=== PATIENT | female | born 1945 | race Caucasian/White ===

== ENCOUNTER 2023-09-18 11:05 | Outpatient (CLI) | payer MEDICARE, BC, SELFPAY | END 2023-09-18 11:06 | disposition home or self-care (01) | PROVIDERS: PCP Nurse Practitioner Family; Visit Provider Nurse Practitioner Family | DX: I10 Essential (primary) hypertension (principal); Z13.220 Encounter for screening for lipoid disorders | CPT/HCPCS: 80053; 80061; 85025 ==

== ENCOUNTER 2024-01-15 13:46 | Outpatient (CLI) | payer MEDICARE, BC, SELFPAY | END 2024-01-15 13:47 | disposition home or self-care (01) | PROVIDERS: PCP Nurse Practitioner Family; Visit Provider Nurse Practitioner Family | DX: I10 Essential (primary) hypertension (principal); Z13.0 Encounter for screening for diseases of the blood and blood-forming organs and certain disorders involving the immune mechanism; Z91.81 History of falling | CPT/HCPCS: 80053; 84484; 85025 ==

== ENCOUNTER 2024-01-28 09:02 | Outpatient (CLI) | payer MEDICARE, BC, SELFPAY ==
--- NOTE | 2024-01-28 09:15 | CRLHL7_ITS ---
For Patients: As a result of the Century Cures Act, medical imaging exams and procedure reports are released immediately into your electronic medical record. You may view this report before your referring provider. If you have questions, please contact your health care provider. INDICATION Fall. TECHNIQUE: Multiplanar multisequence MR imaging of the brain prior to and following intravenous contrast. COMPARISON: None. FINDINGS: Mild diffuse cerebral volume loss. No mass effect or midline shift. Patchy FLAIR hyperintensities in the supratentorial white matter and kade, typical for moderate chronic microvascular ischemic changes. No intracranial hemorrhage or pathologic extra-axial fluid collection. No diffusion restriction to suggest acute infarction. No pathologic intracranial enhancement. The major arterial flow voids at the skull base are preserved. Thinning of the ocular lenses. Airp-ik-ccnzrasl ethmoid sinus mucosal thickening. Small right mastoid effusion. IMPRESSION: 1. No acute intracranial abnormality. 2. Moderate chronic microvascular ischemic changes and mild diffuse cerebral volume loss. Dictated by Quoc Fox MD @ 01/28/2024 1:43:11 PM (Electronically Signed)
== END 2024-01-28 09:03 | disposition home or self-care (01) ==
PROVIDERS: PCP Nurse Practitioner Family; Visit Provider Nurse Practitioner Family
DX: Z91.81 History of falling (principal); I67.82 Cerebral ischemia; W19.XXXA Unspecified fall, initial encounter
CPT/HCPCS: 70553; A9575

== ENCOUNTER 2024-05-06 14:13 | Outpatient (CLI) | payer MEDICARE, BC, SELFPAY | END 2024-05-06 14:14 | disposition home or self-care (01) | PROVIDERS: PCP Nurse Practitioner Family; Visit Provider Nurse Practitioner Family | DX: R42 Dizziness and giddiness (principal) | CPT/HCPCS: 80053; 84484; 85025 ==

== ENCOUNTER 2024-10-11 09:39 | Outpatient (CLI) | payer MEDICARE, BC, SELFPAY ==
--- OUTSIDE RECORDS SUMMARY | 2024-09-21 15:28 | XMS_ITS | Encounter Summary ---
Author Organization [facility] Address [address] [place] [address] Care Team Providers Care Forensic Document Examiner Name Role Phone Elsewhere, Pcp Primary Care Provider Unavailabl e Reason for Referral * Outpatient (Routine) - Closed Specialty Diagnoses / Procedures Referred By Lorri brown Referred To Contact Diagnoses Screening Mammogram Breast Cancer Procedures BI Breast Screening Bilateral with Tomosynthesis Arnaud Meyer M.D. [address] [place] [phone] Phone: tel: [facility] Region Referral ID Status Reason Start Date Expiration Date Visits Re quested Visits Authorized [id number] Closed 09/01/2024 12/02/2025 1 1 Reason for Visit * Outpatient (Routine) - Closed Specialty Diagnoses / Procedures Referred By Lorri brown Referred To Contact Diagnoses Screening Mammogram Breast Cancer Procedures BI Breast Screening Bilateral with Tomosynthesis Arnaud Meyer M.D. [address] [place] [phone] Phone: tel: fax: [facility] Region Referral ID Status Reason Start Date Expiration Date Visits Re quested Visits Authorized [id number] Closed 09/01/2024 12/02/2025 1 1 Encounter Details Date Type Department Care Team (Latest Contact Info) Description 09/21/2024 3:28 PM CDT - 09/21/2024 11:59 PM CDT Hospital Encounter Department of Radiology in [address] [phone] Arnaud Meyer M.D. [address] [place] [phone] Screening Mammogram Breast Cancer Discharge Disposition: Home or Self Care Social History Tobacco Use Types Packs/Day Years Used Date Smoking Tobacco: Former Cigarettes 0.5 21.8 0 09/12/1964 - 1986 Smokeless Tobacco: Never Alcohol Use Standard Drinks/Week Comments Yes 0 (1 standard drink = 0.6 oz pur e alcohol) social use- less than monthy [facility] Utilities Answer Date Recorded In the past 12 months has e [employer], gas, oil, or water [employer] threatened to shut off services in your home? Patient declined 01/08/2024 Humiliation, Afraid, Rape, and Kick questionnair e Answer Date Recorded Within the last year, have y ou been afraid of your partner or ex-partner? Patient declined 07/07/2022 Emotionally Abused Not on file 07/07/2022 Within the last year, have y ou been kicked, hit, slapped, or otherwise physically hurt by your partner or ex-partner? Patient declined 07/07/2022 Within the last year, have y ou been raped or forced to have any kind of sexual activity by your partner or ex-partner? Patient declined 07/07/2022 Hunger Vital Sign Answer Date Recorded Within the past 12 months, y ou worried that your food would run out before you got the money to buy more. Patient declined Within the past 12 months, t he food you bought just didn't last and you didn't have money to get more. Patient declined PRAPARE - Transportation Answer Date Re corded In the past 12 months, has l ack of transportation kept you from medical appointments or from getting medications? Patient declined 01/08/2024 In the past 12 months, has l ack of transportation kept you from meetings, work, or from getting things needed for daily living? Patient declined 01/08/2024 Housing Stability Answer Date Recorded What is your living situation today? I have a [facility] place to live 01/08/2024 Education Answer Date Recorded What is the highest level of school you have completed or the highest degree you have received? 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 metoprolol tartrate (LOPRESSOR) 50 mg tablet Take 50 mg by mouth 2 (two) times a day. 04/30/2021 sertraline (ZOLOFT) 100 mg tablet Take 100 mg by mouth 2 (two) times a day. 3 09/26/2017 vit C/E/Zn/coppr/lute in/zeaxan (PRESERVISION AREDS 2 ORAL) Take 1 capsule by mouth 2 (two) times a day. documented as of this encounter Plan of Treatment Not on file documented as of this encounter Procedures Procedure Name Priority Date/Time Associated Diagnosis Comments BI BREAST SCREENING BILATERAL WITH TOMOSYNTHESIS RAD - Routine (most inpatients and all outpatients) 09/21/2024 3:42 PM CDT Screening Mammogram Breast Cancer documented in this encounter Results * BI Breast Screening Bilateral with Tomosynthesis (09/21/2024 3:42 PM CDT) Anatomical Region Laterality Modality Breast, Breast Imaging RST L OS, Breast Imaging ARZ LOS, Breast Imaging FLA LOS Bilateral Mammography Impressions 09/21/2024 4:41 PM CDT Negative. RECOMMENDATION: Annual Screening Mammogram ASSESSMENT: BI-RADS: 1: Negative. Narrative 09/21/2024 4:41 PM CDT EXAM: BI BREAST SCREENING BILATERAL WITH TOMOSYNTHESIS Current study was evaluated with a Computer Aided Detection (CAD) system. INDICATION: Screening mammogram. COMPARISON: Prior exam(s) were available and reviewed for comparison. DENSITY: c. The breast(s) are heterogeneously dense, which may obscure small masses. FINDINGS: No mammographic findings of malignancy. Procedure Note Mauro Darden M.D. - 09/21/2024 EXAM: BI BREAST SCREENING BILATERAL WITH TOMOSYNTHESIS Current study was evaluated with a Computer Aided Detection (CAD) system. INDICATION: Screening mammogram. COMPARISON: Prior exam(s) were available and reviewed for comparison. DENSITY: c. The breast(s) are heterogeneously dense, which may obscuresmall masses. FINDINGS: No mammographic findings of malignancy. IMPRESSION: Negative. RECOMMENDATION: Annual Screening Mammogram ASSESSMENT: BI-RADS: 1: Negative. Arnaud Meyer M.D. IMG BI PROCEDURES Final R esult documented in this encounter Visit Diagnoses Diagnosis Screening Mammogram Breast Cancer documented in this encounter Additional Health Concerns Assessment Noted Time PHQ-9 Depression Total Score: 0 02/10/20 12 10:02 AM CDT documented as of this encounter Care Teams Forensic Document Examiner Relationship Specialty Start Date End Date Elsewhere, Pcp PCP - General Family Medicine 04/01/18 documented as of this encounter
--- OUTSIDE RECORDS SUMMARY | 2024-10-01 11:14 | XMS_ITS | Encounter Summary ---
Author Organization [facility] Address [address] [place] [address] Care Team Providers Care Psychic Reader Name Role Phone Elsewhere, Pcp Primary Care Provider Unavailabl e Reason for Referral * Outpatient (Routine) - Closed Specialty Diagnoses / Procedures Referred By Contac t Referred To Contact Diagnoses Osteopenia Procedures BMD Bone Density Spine Hips Yadi Wilson, C.N.P. [address] [place] [phone] Phone: tel: fax: [facility] Region Referral ID Status Reason Start Date Expiration Date Visits Re quested Visits Authorized [id number] Closed 09/30/2024 12/31/2025 1 1 Reason for Visit * Outpatient (Routine) - Closed Specialty Diagnoses / Procedures Referred By Contac t Referred To Contact Diagnoses Osteopenia Procedures BMD Bone Density Spine Hips Yadi Wilson, C.N.P. [address] [place] [address] Phone: tel: fax: [facility] Region Referral ID Status Reason Start Date Expiration Date Visits Re quested Visits Authorized [id number] Closed 09/30/2024 12/31/2025 1 1 Encounter Details Date Type Department Care Team ([facility] st Contact Info) Description 10/01/2024 11:14 AM CDT - 10/01/2024 11:59 PM CDT Hospital Encounter Department of Radiology in [address] [phone] Yadi Wilson C.NPieroP. [address] [place] [address] Osteopenia Discharge Disposition: Home or Self Care Social History Tobacco Use Types Packs/Day Years Used Date Smoking Tobacco: Former Cigarettes 0.5 21.8 0 09/12/1964 - 1986 Smokeless Tobacco: Never Alcohol Use Standard Drinks/Week Comments Yes 0 (1 standard drink = 0.6 oz pur e alcohol) social use- less than monthy [facility] Utilities Answer Date Recorded In the past 12 months has e [employer], gas, oil, or water [employer] threatened to shut off services in your [...] PM CDT Legal Sex Female 3:34 AM DIRECTOR SHIP Gender Identity Female 11/24/2017 4:50 PM CDT [...] Procedure Name Priority Date/Time Associated Diagnosis Comments BMD BONE DENSITY SPINE HIPS RAD - Routine (most inpatients and all outpatients) 10/01/2024 11:30 AM CDT Osteopenia documented in this encounter Results * BMD Bone Density Spine Hips (10/01/2024 11:30 AM CDT) Anatomical Region Laterality Modality Hip, Lumbar Spine, Nuclear M edicine RST LOS, Musculoskeletal ARZ LOS, Muskuloskeletal FLA LOS N/A Radio graphic Imaging Impressions 10/01/2024 11:55 AM CDT Low bone density (Osteopenia) DualFemur (region: Neck Right) Narrative 10/01/2024 11:55 AM CDT EXAM: BMD BONE DENSITY SPINE HIPS Bone Mineral Density (BMD) analysis performed on [employer] with serial number [id number]. COMPARISON: Serial Comparisons Left Total Hip results: Exam Date BMD T-score 01/02/2011 0.914 g/cm2 -0.7 01/02/2011 0.915 g/cm2 -0.7 02/10/2012 0.885 g/cm2 -1.0 02/10/2012 0.877 g/cm2 -1.0 08/20/2022 0.781 g/cm2 -1.8 10/01/2024 0.754 g/cm2 -2.0 Change vs. Previous (difference): -0.027 g/cm2 Change vs. Previous (%): -3.5 % The absolute BMD change from previous, -0.027 g/cm2, is greater than least significant change: No The absolute BMD change from baseline, -0.160 g/cm2, is greater than least significant change: Yes Right Total Hip results: Exam Date BMD T-score 01/02/2011 0.925 g/cm2 -0.7 01/02/2011 0.912 g/cm2 -0.8 02/10/2012 0.886 g/cm2 -1.0 02/10/2012 0.894 g/cm2 -0.9 08/20/2022 0.811 g/cm2 -1.6 10/01/2024 0.780 g/cm2 -1.8 Change vs. Previous (difference): -0.031 g/cm2 Change vs. Previous (%): -3.8 % The absolute BMD change from previous, -0.031 g/cm2, is greater than least significant change: No The absolute BMD change from baseline, -0.145 g/cm2, is greater than least significant change: Yes Combined Total Hip results: Exam Date BMD T-score 01/02/2011 0.919 g/cm2 -0.7 01/02/2011 0.913 g/cm2 -0.7 02/10/2012 0.886 g/cm2 -1.0 02/10/2012 0.886 g/cm2 -1.0 08/20/2022 0.796 g/cm2 -1.7 10/01/2024 0.767 g/cm2 -1.9 Change vs. Previous (difference): -0.029 g/cm2 *Change vs. Previous (%): -3.6 % The absolute BMD change from previous, -0.029 g/cm2, is greater than least significant change: Yes The absolute BMD change from baseline, -0.152 g/cm2, is greater than least significant change: Yes ----- FINDINGS: Left Hip: Femur Neck: BMD = 0.723 g/cm2 T-score = -2.3 Z-score = -0.2 Total Hip: BMD = 0.754 g/cm2 T-score = -2.0 Z-score = -0.1 Right Hip: Femur Neck: BMD = 0.711 g/cm2 T-score = -2.4 Z-score = -0.3 Total Hip: BMD = 0.780 g/cm2 T-score = -1.8 Z-score = 0.1 Please note: A more comprehensive DXA report, including images and graphs, is available in [employer]. In the absence of other causes of low BMD or demonstrated skeletal fragility, osteoporosis may be diagnosed in post-menopausal women and men at or above age 50 when the T-score is at or below -2.5 as defined by the WHO. Low bone density is present at T-scores between -1 and -2.5. The diagnosis in pre-menopausal women and men < age 50 can be based on low bone density or evidence of skeletal fragility in the appropriate clinical setting. Based on the lowest femur neck bone density results, and on the patient's answers to the Fracture Risk Assessment questionnaire (please refer to appropriate image stored in the BMD study in [employer]), the calculated ten year probability of fracture is: FRAX Risk Factors: None FRAX (10 yr probability) Major Osteoporotic Fracture: 17.3 % Hip Fracture: 5.6 % Procedure Note Florentin Szymanski M.D. - 10/01/2024 EXAM: BMD BONE DENSITY SPINE HIPS Bone Mineral Density (BMD) analysis performed on [employer] serial number [id number]. COMPARISON: Serial Comparisons Left Total Hip results: Exam Date BMD T-score 01/02/2011 0.914 g/cm2 -0.7 01/02/2011 0.915 g/cm2 -0.7 02/10/2012 0.885 g/cm2 -1.0 02/10/2012 0.877 g/cm2 -1.0 08/20/2022 0.781 g/cm2 -1.8 10/01/2024 0.754 g/cm2 -2.0 Change vs. Previous (difference): -0.027 g/cm2 Change vs. Previous (%): -3.5 % The absolute BMD change from previous, -0.027 g/cm2, is greater than least significant change: No The absolute BMD change from baseline, -0.160 g/cm2, is greater than least significant change: Yes Right Total Hip results: Exam Date BMD T-score 01/02/2011 0.925 g/cm2 -0.7 01/02/2011 0.912 g/cm2 -0.8 02/10/2012 0.886 g/cm2 -1.0 02/10/2012 0.894 g/cm2 -0.9 08/20/2022 0.811 g/cm2 -1.6 10/01/2024 0.780 g/cm2 -1.8 Change vs. Previous (difference): -0.031 g/cm2 Change vs. Previous (%): -3.8 % The absolute BMD change from previous, -0.031 g/cm2, is greater than least significant change: No The absolute BMD change from baseline, -0.145 g/cm2, is greater than least significant change: Yes Combined Total Hip results: Exam Date BMD T-score 01/02/2011 0.919 g/cm2 -0.7 01/02/2011 0.913 g/cm2 -0.7 02/10/2012 0.886 g/cm2 -1.0 02/10/2012 0.886 g/cm2 -1.0 08/20/2022 0.796 g/cm2 -1.7 10/01/2024 0.767 g/cm2 -1.9 Change vs. Previous (difference): -0.029 g/cm2 *Change vs. Previous (%): -3.6 % The absolute BMD change from previous, -0.029 g/cm2, is greater than least significant change: Yes The absolute BMD change from baseline, -0.152 g/cm2, is greater than least significant change: Yes ----- FINDINGS: Left Hip: Femur Neck: BMD = 0.723 g/cm2 T-score = -2.3 Z-score = -0.2 Total Hip: BMD = 0.754 g/cm2 T-score = -2.0 Z-score = -0.1 Right Hip: Femur Neck: BMD = 0.711 g/cm2 T-score = -2.4 Z-score = -0.3 Total Hip: BMD = 0.780 g/cm2 T-score = -1.8 Z-score = 0.1 Please note: A more comprehensive DXA report, including images and graphs,is available in [employer]. In the absence of other causes of low BMD or demonstrated skeletalfragility, osteoporosis may be diagnosed in post-menopausal women and menat or above age 50 when the T-score is at or below -2.5 as defined by theWHO. Low bone density is present at T-scores between -1 and -2.5. The diagnosis in pre-menopausal women andmen < age 50 can be based on low bone density or evidence of skeletalfragility in the appropriate clinical setting. Based on the lowest femur neck bone density results, and on the patient'sanswers to the Fracture Risk Assessment questionnaire (please refer toappropriate image stored in the BMD study in [employer]), the calculated tenyear probability of fracture is: FRAX Risk Factors: None FRAX (10 yr probability) Major Osteoporotic Fracture: 17.3 % Hip Fracture: 5.6 % IMPRESSION: Low bone density (Osteopenia) DualFemur (region: Neck Right) us Yadi Wilson C.N.P. IMG DXA PROCEDURES Fin al Result documented in this encounter Visit Diagnoses Diagnosis Osteopenia documented in this encounter Additional Health Concerns Assessment Noted Time PHQ-9 Depression Total Score: 0 02/10/20 12 10:02 AM CDT documented as of this encounter Care Teams Psychic Reader Relationship Specialty Start Date End Date Elsewhere, Pcp PCP - General Family Medicine 04/01/18 documented as of this encounter
--- OUTSIDE RECORDS SUMMARY | 2024-10-12 02:01 | XMS_ITS | Encounter Summary ---
Author Organization [facility] Address [address] [place] [address] Care Team Providers Care Office Worker Name Role Phone Elsewhere, Pcp Primary Care Provider Unavailabl e Reason for Visit * Reason Onset Date Comments Order Request 09/30/2024 External Referra l for Radiology Dexa Scan Encounter Details Date Type Department Care Team (Late st Contact Info) Description 09/30/2024 Clinical Communication Department of Radiology in [address] [phone] External, Referring Provider Order Request (External Referral for Radiology Dexa Scan ) Social History Tobacco Use Types Packs/Day Years Used Date Smoking Tobacco: Former Cigarettes 0.5 21.8 0 09/12/1964 - 1986 Smokeless Tobacco: Never Alcohol Use Standard Drinks/Week Comments Yes 0 (1 standard drink = 0.6 oz pur e alcohol) social use- less than monthy [facility] Utilities Answer Date Recorded In the past 12 months has e [employer], gas, oil, or water [employer] threatened to shut off services in your [...] your living situation today? I have a [facility] place to live 01/08/2024 Education Answer Date Recorded What is the highest level of school you have completed or the highest degree you have received? 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
--- OUTSIDE RECORDS SUMMARY | 2024-10-12 02:02 | XMS_ITS | Clinical Summary ---
Author Organization [facility] Address [address] [place] [address] Care Team Providers Care Fish Checker Name Role Phone Azeem Paz MD Primary Care Provider [phone] Source Comments You are receiving this document as you are listed as the primary care provider,follow-up provider, or the patient has been referred to you for consultation.This is in compliance with the Medicare and[facility] Hospitalca[facility] EHR Incentive Program,which states Providers who transition their patient to another setting of careor provider of care or refers their patient to another provider of care shouldprovide summary care record for each transition of care or referral. [facility] Resolved Problems Problem Noted Date Diagnosed Date Resolved Date Low back pain 10/07/2016 04/10/2017 Lumbar radiculopathy 10/07/2016 017 Social History Tobacco Use Types Packs/Day Years Used Date Smoking Tobacco: Never Assessed Comments Unknown Sex and Gender Information Value Date Recorded Sex Assigned at Not on file Legal Sex Female 10:37 AM CDT Gender Identity Not on file Sexual Orientation Not on file Plan of Treatment Health Maintenance Due Date Last Done Comments Hep C Screening (Preventive Services) 1945 Medicare Annual Wellness Visit 1945 DTaP/Tdap/Td Vaccine (1 - Tdap) 1965 Pneumococcal Vaccine 50+ Yrs (1 of 1 - PCV) 1996 Zoster/Shingles Vaccine (1 of 2) 1996 Dexa 2011 RSV Vaccine (1 - 1-dose 75+ series) 2021 COVID-19 Vaccine (1 2023-2 5 season) 2023 Influenza Vaccine (Season Ended) 2024 HepA Vaccine Aged Out No longer eligi ble based on patient's age to complete this topic HepB Vaccine Aged Out No longer eligi ble based on patient's age to complete this topic Hib Vaccine Aged Out No longer eligi ble based on patient's age to complete this topic IPV (Polio) Vaccine Aged Out No longe r eligible based on patient's age to complete this topic MCV4 Vaccine Aged Out No longer eligi ble based on patient's age to complete this topic Meningococcal B Vaccine Aged Out No l onger eligible based on patient's age to complete this topic Insurance [address] [place] [address] [facility] MEDICARE SUPPLEMENT MEDICARE Care Teams Fish Checker Relationship Specialty Start Date End Date Azeem Paz MD [address] [place] [address] PCP - General Family Practice 09/24/16
--- OUTSIDE RECORDS SUMMARY | 2024-10-12 02:02 | XMS_ITS | Clinical Summary ---
Author Organization [facility] Address [address] [place] [id number] Care Team Providers Care Spanish Translator Name Role Phone Azeem Paz Primary Care Provider Unavailabl e Allergies Active Allergy Reactions Criticality Noted Date Comments Penicillins Rash 05/05/2017 Medications aspirin chewable 81 mg chewable tablet Take 81 mg by mouth once daily with a meal. Active gabapentin (NEURONTIN) 400 mg capsule Take 400 mg by mouth 3 times daily. Active METOPROLOL SUCCINATE ORAL Take 12.5 mg by mouth once daily in the evening. Active multivitamin (MVI) tablet Take 1 tablet by mouth once daily. Active calcium citrate-vitamin D3, 315 mg-250 units, (CALCITRATE-SAM MIN D) 315-250 mg-unit tab tablet Take 2 tablets by mouth 2 times daily with meals. Active oxyCODONE (ROXICODONE) 5 mg immediate release tabletIndication s:Spinal stenosis, lumbar Take 1-2 tablets by mouth every 4 hours if needed for Pain (1 tab pain 1-5/10 2 tabs pain 6-10/10) 90 tablet 05/12/2017 1:17 PM EMERGENCY MANAGEMENT SPECIALIST 05/12/2017 Active sennosides-docus ate, 8.6-50 mg, (SENOKOT S) 8.6-50 mg tabletIndication s:Spinal stenosis, lumbar Take 2 tablets by mouth 2 times daily. 100 tablet 05/12/2017 1:17 PM EMERGENCY MANAGEMENT SPECIALIST 05/12/2017 Active methocarbamol (ROBAXIN) 750 mg tabletIndication s:Spinal stenosis, lumbar Take 1 tablet by mouth every 6 hours if needed for Muscle Spasm. 60 tablet 05/12/2017 1:17 PM EMERGENCY MANAGEMENT SPECIALIST 05/12/2017 Active sertraline (ZOLOFT) 50 mg tabletIndication s:Depression, unspecified depression type Take 3 tablets by mouth once daily. 05/12/2017 Active Active Problems Problem Noted Date Diagnosed Date Lumbar stenosis with neurogenic claudication Acute blood loss anemia Immunizations Immunization Administration Dates Next Due Influenza, Inactivated IIV3 (Age 65+ Years) Preserv Free 02/13/2017 Social History Tobacco Use Types Packs/Day Years Used Date Smoking Tobacco: Former Cigarettes Q uit: 1985 Smokeless Tobacco: Never Alcohol Use Standard Drinks/Week Comments No 0 (1 standard drink = 0.6 oz pur e alcohol) Comments No Sex and Gender Information Value Date Recorded Sex Assigned at Not on file Legal Sex Female 6:09 AM EMERGENCY MANAGEMENT SPECIALIST Gender Identity Not on file Sexual Orientation Not on file Obstetrics History Last Filed Vital Signs Vital Sign Reading Time Taken Comments Blood Pressure 122/70 05/12/2017 8:57 AM EMERGENCY MANAGEMENT SPECIALIST Pulse 90 05/12/2017 1:39 AM EMERGENCY MANAGEMENT SPECIALIST Temperature 37.1 C (98.7 F) 05/12/2017 8:57 AM EMERGENCY MANAGEMENT SPECIALIST Respiratory Rate 18 05/12/2017 8:57 AM EMERGENCY MANAGEMENT SPECIALIST Oxygen Saturation 96% 05/12/2017 8:57 AM EMERGENCY MANAGEMENT SPECIALIST Inhaled Oxygen Concentration - - Weight 82.4 kg (181 lb 10.5 oz) 05/08/2017 6:30 AM EMERGENCY MANAGEMENT SPECIALIST Height 161.3 cm (5' 3.5) 05/08/2017 6:30 AM EMERGENCY MANAGEMENT SPECIALIST Body Mass Index 31.67 05/08/2017 6:30 AM EMERGENCY MANAGEMENT SPECIALIST Plan of Treatment Health Maintenance Due Date Last Done Comments Tdap 1957 Depression screening for age 12+ 1958 BMI (ht and wt on same day) for age 18+ 1964 Hepatitis C screening for ag e 18-79 1964 Tetanus booster 1966 Pneumococcal series for age 50+ (1 of 1 - PCV) 1996 Zoster (shingles) series for age 50+ (1 of 2) 1996 DEXA/DXA scan for age 65+ 2011 RSV vaccine for adults or (1 - 1-dose 75+ series) 2021 COVID-19 vaccine series ( season) 2023 Influenza Vaccine (Season Ended) 2024 02/14/20 17 Hepatitis B series for 19+ Aged Out N o longer eligible based on patient's age to complete this topic Medical Devices Implanted Type Area Airborne And Air Delivery Specialist Device Identifier Shelf Expiration Date Model / Serial / Lot [id number] Implanted:Qty: 1 on 05/08/2017 by Chico Fry MD at [facility] Explanted:at [facility] (Quantity not on file) N/A: Spine SPINAL GRAFT 04/10/2021 [id number] / [id number] / Description:CANC CHIPS 30CC Screw Lmbr Post 7.5x45mm Solera 4.75 Va - [id number] Implanted:Qty: 2 on 05/08/2017 by Chico Fry MD at [facility] N/A: Spine Medtronic Spine/Ortho [id number]# / / Dura Neuro 1x1in Duragen Plus Non-Sut - [id number] Implanted:Qty: 1 on 05/08/2017 by Chico Fry MD at [facility] N/A: Spine Integra Lifesciences Alfredo 10/12/2019 [id number] / / [id number] Bone Matrix Md Infuse Bmp - [id number] Implanted:Qty: 1 on 05/08/2017 by Chico Fry MD at [facility] N/A: Spine Medtronic Spine/Ortho 02/11/2019 [id number] / / [id number] Cube 30cc 6-10mm Implanted:Qty: 1 on 05/08/2017 by Chico Fry MD at [facility] Explanted:at [facility] (Quantity not on file) N/A: Spine Medtronic Spine/Ortho 11/18/2021 [id number] / [id number] / Description:CANC CUBE 30CC 6 -10MM Spacer Lmbr [id number] 13deg Elevate Extra-Lordotic Peek Titn - [id number] Implanted:Qty: 1 on 05/08/2017 by Chico Fry MD at [facility] N/A: Spine Medtronic Spine/Ortho 09/13/2023 [id number] / / [id number] Spacer Lmbr [id number] 13deg Elevate Extra-Lordotic Peek Titn - [id number] Implanted:Qty: 1 on 05/08/2017 by Chico Fry MD at [facility] N/A: Spine Medtronic Spine/Ortho 02/04/2025 [id number] / / [id number] Set Screw Lmbr 4.71y10ip Solera 4.75 Ns Brk Off - [id number] Implanted:Qty: 6 on 05/08/2017 by Chico Fry MD at [facility] N/A: Spine Medtronic Spine/Ortho [id number]# / / Gilbert Lmbr 55mmx4.75cm Solera 4.75 Cvd Co Cr - [id number] Implanted:Qty: 1 on 05/08/2017 by Chico Fry MD at [facility] N/A: Spine Medtronic Spine/Ortho [id number] # / / Gilbert Lmbr 60mmx4.75cm Solera 4.75 Cvd Co Cr - [id number] Implanted:Qty: 1 on 05/08/2017 by Chico Fry MD at [facility] N/A: Spine Medtronic Spine/Ortho [id number] # / / Screw Lmbr Post 7.5x40mm Solera 4.75 Va - [id number] Implanted:Qty: 1 on 05/08/2017 by Chico Fry MD at [facility] N/A: Spine Medtronic Spine/Ortho [id number]# / / Screw Lmbr Post 7.5x35mm Solera 4.75 Va - [id number] Implanted:Qty: 3 on 05/08/2017 by Chico Fry MD at [facility] N/A: Spine Medtronic Spine/Ortho [id number] 5# / / Insurance MEDICARE PART A HB ONLY [facility] MEDICARE PART B HB ONLY MEDICARE PB ONLY Advance Directives Documents on File Type Date Recorded Patient Topography Technician Expl anation Healthcare Directive 05/08/2017 6:59 AM * Full Code (Latest Code Status on File) Date Activated Date Inactivated Comments 05/08/2017 3:49 PM 05/12/2017 4:34 PM Question Answer Comments Code Status Discussion: Discussed * Full Code Date Activated Date Inactivated Comments 05/08/2017 5:35 AM 05/08/2017 3:41 PM Question Answer Comments Code Status Discussion: Per Advance Care Plan Care Teams Spanish Translator Relationship Specialty Start Date End Date Azeem Paz PCP - General 05/02/17
--- OUTSIDE RECORDS SUMMARY | 2024-10-12 02:02 | XMS_ITS | Clinical Summary ---
Author Organization [facility] Address [address] [place] [address] Care Team Providers Care Manager Field Service Name Role Phone Elsewhere, Pcp Primary Care Provider Unavailabl e Source Comments Patient records contain information from all sites at [facility]. For routine questions regarding patient records, call [phone] during business hours, M-F 8:00 AM - 5:00 PM Central Time. Record requests for emergency care only can be directed to [phone] at any time.[facility] Allergies Active Allergy Reactions Criticality Noted Date Comments Penicillins Rash High 05/05/2017 Medications * This document contains information received from the source organization and may not represent a complete record from that organization. sertraline (ZOLOFT) 100 mg tablet Take 100 mg by mouth 2 (two) times a day. 3 09/26/2017 Active vit C/E/Zn/coppr/angy tein/zeaxan (PRESERVISION AREDS 2 ORAL) Take 1 capsule by mouth 2 (two) times a day. Active calcium citrate-vitamin D3 315 mg- 250 unit per tablet Take 1 tablet by mouth. Active metoprolol tartrate (LOPRESSOR) 50 mg tablet Take 50 mg by mouth 2 (two) times a day. 04/30/2021 Active Active Problems Problem Noted Date Diagnosed Date Hemorrhoids 06/09/2023 Diarrhea 05/14/2022 Overview (05/14/2022): Added automatically from request for surgery [id number] Change In Bowel Habit 05/14/2022 Overview (05/14/2022): Added automatically from request for surgery [id number] Cyst Pancreas 07/28/2019 Ulcer Gastric 12/03/2018 Malignant Neoplasm Of Colon 11/25/2017 Cancer Staging:Pathologic:Stage IIA(pT3, pN0, cM0) - Signed by Mary Belcher M.D. on 10/12/2021 Overview (11/25/2017): Added automatically from request for surgery [id number] Depressive Disorder 07/10/2013 Overview (09/03/2016): Depressive Disorder, Not Elsewhere Classified Depressive disorder, not elsewhere classified Depression (non-psychotic) Dysthymia 06/10/2011 Overview (09/03/2016): Dysthymic Disorder Hypertension 06/10/2011 Overview (09/03/2016): HTN [Hypertension] Depressive Disorder 01/02/2011 Overview (09/03/2016): Depression date of onset unknown Pain Low Back Chronic Resolved Problems Problem Noted Date Diagnosed Date Resolved Date Malignant Neoplasm Of Colon Adenocarcinoma 10/08/2019 10/12/2021 Overview (10/08/2019): Added automatically from request for surgery [id number] Encounters Date Type Department Care Team Description 10/01/2024 11:14 AM CDT - 10/01/2024 11:59 PM CDT Hospital Encounter Department of Radiology in [address] [phone] Yadi Wilson C.NPieroP. Osteopenia Discharge Disposition: Home or Self Care 09/30/2024 Clinical Communication Department of Radiology in [address] [phone] External, Referring Provider Order Request (External Referral for Radiology Dexa Scan ) 09/21/2024 3:28 PM CDT - 09/21/2024 11:59 PM CDT Hospital Encounter Department of Radiology in [address] [phone] Arnaud Meyer M.D. Screening Mammogram Breast Cancer Discharge Disposition: Home or Self Care from Last 3 Months Immunizations Immunization Administration Dates Next Due Influenza, Unspecified 02/13/2017,02/10/2012, PPSV23 02/10/2012 Tdap 06/23/2007 Family History Medical History Relation Name Comments Breast cancer Mother Erin Bains 52-55 years old Macular degeneration Mother Erin Bains Rectal cancer Mother Erin Bains Glaucoma Sister 1 Macular degeneration Sister 1 Rheum arthritis Sister 1 Macular degeneration Sister 2 Amblyopia Neg Hx Anesthesia problems Neg Hx Blindness Neg Hx Cataracts Neg Hx Diabetes Neg Hx Hypertension Neg Hx Retinal degeneration Neg Hx Retinal detachment Neg Hx Strabismus Neg Hx Relation Name Status Comments Mother Erin Bains Sister 1 Sister 2 Social History Tobacco Use Types Packs/Day Years Used Date Smoking Tobacco: Former Cigarettes 0.5 21.8 0 09/12/1964 - 1986 Smokeless Tobacco: Never Tobacco Cessation:Counseling Given: Not Answered Alcohol Use Standard Drinks/Week Comments Yes 0 (1 standard drink = 0.6 oz pur e alcohol) social use- less than monthy [facility] Utilities Answer Date Recorded In the past 12 months has e MyCheck, gas, oil, or water [employer] threatened to shut off services in your [...] your living situation today? I have a [facility] place to live 01/08/2024 Education Answer Date Recorded What is the highest level of school you have completed or the highest degree you have received? 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 Gender Identity Female 11/24/2017 4:50 PM CDT Sexual Orientation Straight 11/24/2017 4: 50 PM CDT Last Filed Vital Signs Vital Sign Reading Time Taken Comments Blood Pressure 132/78 01/13/2024 9:06 AM CDT Pulse 68 01/13/2024 9:06 AM CDT Temperature 36.7 C (98.1 F) 01/13/2024 9:06 AM CDT Respiratory Rate 16 06/27/2022 1:05 PM CDT Oxygen Saturation 96% 01/13/2024 9:06 AM CDT Inhaled Oxygen Concentration - - Weight 76.3 kg (168 lb 3.4 oz) 01/13/2024 9:06 A M CDT Height 163.8 cm (5' 4.49) 10/12/2021 9:13 AM C DT Body Mass Index 28.44 10/12/2021 9:13 AM CDT Plan of Treatment Health Maintenance Due Date Last Done Comments CT Colonography 1945 Cologuard 1945 Depression Monitoring (PHQ-9) 1945 Hepatitis C Screening 1945 RSV vaccine - (32-36 weeks) or 60+ years (1 - 1-dose 75+ series) 2021 Depression Monitoring (PHQ-9 for quality tracking) 04/14/2024 Fall Risk Screen (Annual) 04/14/2024 COVID-19 Vaccine ( season) 2024 03/31/2024, 02/04/2022, 01/24/2021, Additional history exists Influenza Vaccine (#1) 2025 , 03/21/2023, 02/14/2022, Additional history exists Office Visit for Blood Pressure Check / Re-check 01/12/2025 01/13/2024 Colonoscopy 06/28/2027 06/27/2022, 12/13, 12/18/2018, Additional history exists Colorectal Cancer Surveillance 06/28/2027 DTaP,Tdap,and Td Vaccines (3 - Td or Tdap) 11/27/2027 11/26/2017, 06/23/2007, 04/19/1997 Pneumococcal vaccine (50+ years) Completed 01/04/2016, 02/10/2012 Zoster Vaccines Completed 01/07/2023, 09/2022, 07/29/2022, Additional history exists Mammogram Discontinued 09/21/2024, 08/13, 08/20/2022, Additional history exists Bone Density Scan (Osteoporosis Screen) Discontinued 10/01/2024 IPV Vaccines Aged Out No longer eligi ble based on patient's age to complete this topic Medical Devices Implanted Type Area Body Piercer Device Identifier Shelf Expiration Date Model / Serial / Lot Ear Implant-Big Easy Piston 02/07/2014 Implanted:Qty: 1 on 02/07/2014 by Syd Sanches M.D. Ear Implant Right: Ear Medtronic [id number] / / [id number] Description:Ear Imp Big Easy Piston 4.25x0.5mm; MR Conditional up to 3T per [facility]. [facility] 10/30/2023 Hardware E.G. Pins/Screws/Gilbert s Hardware e.g. pins/screws/ rods Back Ocular (Eye) Implant-04/26/19 14 Implanted:04/26 (Quantity not on file) Ocular (Eye) Implant Right: Eye Ocular Lens Ocular Lens Left: Eye Procedures Procedure Name Priority Date/Time Associated Diagnosis Comments BMD BONE DENSITY SPINE HIPS RAD - Routine (most inpatients and all outpatients) 10/01/2024 11:30 AM CDT Osteopenia BI BREAST SCREENING BILATERAL WITH TOMOSYNTHESIS RAD - Routine (most inpatients and all outpatients) 09/21/2024 3:42 PM CDT Screening Mammogram Breast Cancer COLONOSCOPY 06/27/2022 1:01 PM CDT from Last 3 Months or Most Recently Relevant to Health Maintenance Results * BMD Bone Density Spine Hips [...] Bone Mineral Density (BMD) analysis performed on [employer] with serial number [id number]. COMPARISON: Serial Comparisons Left Total Hip results: [...] including images and graphs, is available in Screen. In the absence of other causes of [...] image stored in the BMD study in Screen), the calculated ten year probability of fracture is: FRAX Risk Factors: None FRAX (10 yr probability) Major Osteoporotic Fracture: 17.3 % Hip Fracture: 5.6 % Procedure Note Florentin Szymanski M.D. - 10/01/2024 EXAM: BMD BONE DENSITY SPINE HIPS Bone Mineral Density (BMD) analysis performed on [employer].tkwith serial number [id number]. COMPARISON: Serial Comparisons Left Total Hip results: [...] report, including images and graphs,is available in Screen. In the absence of other causes of [...] image stored in the BMD study in [employer]), the calculated tenyear probability of fracture is: FRAX Risk Factors: None FRAX (10 yr probability) Major Osteoporotic Fracture: 17.3 % Hip Fracture: 5.6 % IMPRESSION: Low bone density (Osteopenia) DualFemur (region: Neck Right) Yadi Wilson C.N.P. IM DXA PROCEDURES Fin al Result * BI Breast Screening Bilateral with Tomosynthesis [...] ASSESSMENT: BI-RADS: 1: Negative. Arnaud Meyer M.D. [facility] BI PROCEDURES Final R esult * COLONOSCOPY (06/27/2022 1:01 PM CDT) Narrative Procedure Note Kash Nichole M.D. - 06/27/2022 1:01 PM CDT [facility] Patient Name: Breana Thompson Procedure Date: 06/27/2022 1:01 PM Date of : 1945 Age: 77 Gender: Female Procedure: Colonoscopy Providers: Kash Nichole MD, Makenna Preston (Ordering Provider) Referring Provider: Makenna Preston Pre-op Diagnoses: Change in bowel habits Post-op Diagnoses: - Diverticulosis in the sigmoid colon. Biopsied. - Patent stzb-[id number] ileo-colonic anastomosis, characterized byhealthy appearing mucosa. - The examination was otherwise normal on direct and retroflexionviews. Recommendation: - Await pathology results. - Return to referring physician PRN per oncology. - Repeat colonoscopy PRN for surveillance. Findings: The perianal and digital rectal examinations were normal. Multiple small-mouthed diverticula were found in the sigmoid colon. Biopsies for histology were taken with a cold forceps from the entire colon for evaluation of microscopic colitis. There was evidence of a patent kwbd-dx-zisn ileo-colonic anastomosis found in the terminal ileum. This was characterized by healthyappearing mucosa. This was traversed. The exam was otherwise without abnormality on direct and retroflexion views. Medicines: Monitored Anesthesia Care Estimated Blood Loss: Estimated blood loss: none. Complications: No immediate complications. Procedure Details: The patient was seen, evaluated, and history reviewed. Airway and heart and lung exams were performed and were satisfactory for plannedsedation care. The risks, benefits and alternatives for the procedure and sedation were discussed andinformed consent was obtained. A procedural pause was conducted in the presence of assisting personnelto verify the correct patient identity and procedureto be performed. Throughout the procedure, the patient's blood pressure, pulse, and oxygen saturations were monitored continuously. The Colonoscope was introduced under directvision through the anus and advanced to the terminalileum. The colonoscopy was performed without difficulty. The patient tolerated the procedure well. The quality of the bowel preparation was evaluatedusing the BBPS ([place] Bowel Preparation Scale) with scores of: Right Colon = 3, Transverse Colon = 3and Left Colon = 3 (entire mucosa seen well with no residual staining, small fragments of stool or opaque liquid). The total BBPS score equals 9. Sedation: NERI Nichole MD 06/27/2022 1:03:56 PM This report has been signed electronically. Number of Addenda: 0 Note Initiated On: 06/27/2022 1:01 PM Makenna TRUJILLO, PPieroA.-Shaq., P.A. GI PROCEDURE O RDERABLES Final Result from Last 3 Months or Most Recently Relevant to Health Maintenance Insurance MEDICARE [facility] Advance Directives For more information, please contact: [phone] Documents on File Type Date Recorded Patient Compliance Engineer Expl anation Advance Directives 12/19/2017 11:46 AM Heal th Care Directive * Full Code (Latest Code Status on File) Date Activated Date Inactivated Comments 06/27/2022 1:06 PM 06/27/2022 3:37 PM Question Answer Comments Full Code: Discussed * Full Code Date Activated Date Inactivated Comments 12/29/2019 8:26 AM 12/29/2019 11:18 AM Question Answer Comments Full Code: Discussed * Full Code Date Activated Date Inactivated Comments 12/29/2019 7:29 AM 12/29/2019 8:26 AM Question Answer Comments Full Code: Discussed * Full Code Date Activated Date Inactivated Comments 04/21/2019 12:21 PM 04/21/2019 3:29 PM Question Answer Comments Full Code: Discussed * Full Code Date Activated Date Inactivated Comments 04/21/2019 11:46 AM 04/21/2019 12:21 PM Question Answer Comments Full Code: Discussed Healthcare Agents on File Name Relationship Healthcare Agent Relationship Communication Joseph Thompson Son Health Care Agent Radha Orlando Daughter First Alternate Health Care Agent Care Teams Manager Field Service Relationship Specialty Start Date End Date Elsewhere, Pcp PCP - General Family Medicine 04/01/18
== END 2024-10-11 09:40 | disposition home or self-care (01) ==
PROVIDERS: PCP Nurse Practitioner Family; Visit Provider Nurse Practitioner Family
DX: R74.8 Abnormal levels of other serum enzymes (principal); I10 Essential (primary) hypertension; Z13.6 Encounter for screening for cardiovascular disorders; Z13.0 Encounter for screening for diseases of the blood and blood-forming organs and certain disorders involving the immune mechanism
CPT/HCPCS: 80053; 80061; 85025

== ENCOUNTER 2024-10-21 10:41 | Outpatient (CLI) | payer MEDICARE, BC, SELFPAY ==
--- NOTE | 2024-10-21 10:45 | CRLHL7_ITS ---
For Patients: As a result of the Century Cures Act, medical imaging exams and procedure reports are released immediately into your electronic medical record. You may view this report before your referring provider. If you have questions, please contact your health care provider. INDICATION: ELEVATED LFTS COMPARISON: none TECHNIQUE: Real time archer scale imaging and color Doppler analysis was performed of the right upper quadrant. FINDINGS: Hepatic echotexture is normal aside from 2 incidental cysts measuring up to 1.2 cm. There is a normal appearance of the hepatic IVC and proximal abdominal aorta. There is no evidence of ascites. The gallbladder is of normal size and there is an echogenic focus associated with the dependent gallbladder wall measuring 6 millimeters. The gallbladder wall measures 1.8 mm in thickness. The common bile duct is of normal size and measures 6.3 mm in diameter at the level of the alexis hepatis. Cystic lesion within the pancreas measures 1.3 x 0.9 x 1.0 cm. Pancreatic duct measures 3.5 millimeters. There is no evidence of a stone or hydronephrosis within the right kidney. The right kidney measures 7.9 cm in length. IMPRESSION: Gallstone versus polyp in the gallbladder lumen measuring 6 millimeters. No biliary obstruction. Cystic lesion within the pancreas measuring 1.[address] pancreatic protocol recommended. Incidental cysts within the liver measuring up to 1.2 cm. Liver is otherwise normal. Dictated by Florentin Antony MD @ 10/21/2024 8:28:49 PM (Electronically Signed)
== END 2024-10-21 10:42 | disposition home or self-care (01) ==
LOC: US 10:41
PROVIDERS: PCP Nurse Practitioner Family; Visit Provider Nurse Practitioner Family
DX: R79.89 Other specified abnormal findings of blood chemistry (principal); R74.8 Abnormal levels of other serum enzymes; K82.9 Disease of gallbladder, unspecified; K86.2 Cyst of pancreas; K76.89 Other specified diseases of liver
CPT/HCPCS: 76705